=== PATIENT | male | born 1950 | race Caucasian/White ===

== ENCOUNTER → 2018-05-07 14:52 | Outpatient (CLI) | payer OTHER, SELFPAY ==
[2018-05-07 15:54] LABS: Add Manual Diff / Slide Review NO; Basophils Percent Auto 0.3 % (0-2); Eosinophils Percent Auto 7.6 % (2-4); Hematocrit 46.3 % (41-53); Hemoglobin 15.5 g/dL (13.5-17.5); Lymphocytes Percent Auto 16.7 % (25-40); Mean Corpuscular HGB Conc 33.5 % (30-36); Mean Corpuscular Hemoglobin 31.5 PG (26-34); Mean Corpuscular Volume 93.9 fL (80-100); Monocytes Percent Auto 9.6 % (3-14); Neutrophils Absolute Auto 5900 /uL (3000-5900); Neutrophils Percent Auto 65.8 % (50-75); Platelet Count 222 X10^3/uL (150-400); Red Blood Cell Count 4.93 X10^6/uL (4.5-5.9); Red Cell Distribution Width 13.4 % (11.6-14.8); White Blood Cell Count 8.9 X10^3/uL (4.5-11.0)
[2018-05-07 16:29] LABS: Alanine Aminotransferase 26 IU/L (21-72); Albumin 4.1 g/dL (3.5-5.0); Albumin Globulin Ratio 1.4 (1.0-2.8); Alkaline Phosphatase 61 U/L (38-126); Aspartate Aminotransferase 23 IU/L (17-59); Bilirubin Total 0.4 mg/dL (0.2-1.3); Blood Urea Nitrogen 24 mg/dL (9-20); Calcium 8.8 mg/dL (8.4-10.2); Carbon Dioxide 30 mmol/L (22-32); Chloride 101 mmol/L (98-107); Cholesterol 180 mg/dL (140-199); Estimated Glomerular Filt Rate > 60.0 mL/min (>60); Globulin 2.9 g/dL (1.7-4.1); Glucose 79 mg/dL (80-110); HDL Cholesterol 64 mg/dL (40-60); HEMOLYSIS < 15 (0-50); LDL Cholesterol Calculated 94 mg/dL (<100); Potassium 4.5 mmol/L (3.4-5.1); Sodium 141 mmol/L (137-145); Triglycerides 110 mg/dL (35-150)
[2018-05-07 19:14] LABS: Prostate Specific Antigen Scrn 0.518 ng/mL (0.1-4.0)
== END ==
PROVIDERS: PCP Internal Medicine; Visit Provider Physician Assistant
DX: Z12.5 Encounter for screening for malignant neoplasm of prostate (principal); E78.2 Mixed hyperlipidemia
CPT/HCPCS: 36415; 80053; 80061; 85025; G0103

== ENCOUNTER 2019-07-25 14:07 | Emergency (ER) | payer MEDICARE, SELFPAY ==
[2019-07-25 14:13] VITALS: BP 146/97; PULSE 966; RESP 14; TEMP 36.6; O2SAT 97; BMI 25.1
--- NOTE | 2019-07-25 15:31 | DI.RAD.S_ITS ---
PROCEDURE: XR RIBS LT MIN 3V W CXR1V INDICATIONS: fall/pain TECHNIQUE: 2 views of the left ribs were acquired, along with a single view chest. COMPARISON: None. FINDINGS: Surgical changes and devices: None. Bones and chest wall: There is a nondisplaced lateral left 8th rib fracture. No additional rib fractures are evident. No suspicious bony lesions. Overlying soft tissues appear unremarkable. The Lungs and pleura: No pleural effusions or pneumothorax. Mild atelectasis at the left costophrenic angle is noted. No additional areas of significant pulmonary consolidation are appreciated. Mediastinum: Mediastinal contours appear normal. Heart size is normal. IMPRESSION: Nondisplaced left lateral 8th rib fracture. No pneumothorax. Dictated by: Efren Evans M.D. on 07/25/2019 at 15:53 Approved by: Efren Evans M.D. on 07/25/2019 at 15:54
--- NOTE | 2019-07-25 15:31 | DI.RAD.S_ITS ---
PROCEDURE: XR THORACIC SPINE 2V INDICATIONS: fall/pain TECHNIQUE: 2 views of the thoracic spine were acquired. COMPARISON: None. FINDINGS: Bones: On the lateral views, the cervicothoracic junction is not completely included on this examination on the lateral view. No swimmer's view was provided. The vertebral body heights are within normal limits throughout the thoracic spine without evidence to suggest acute compression fracture. The bone mineralization is within normal limits. Moderate degenerative changes of the thoracic spine are present. Soft tissues: The imaged overlying soft tissues of the chest are within normal limits. IMPRESSION: 1. Moderate degenerative changes of the thoracic spine. 2. No displaced fractures are appreciated. However, the cervicothoracic junction was not adequately evaluated on this study on the lateral view. Dictated by: Efren Evans M.D. on 07/25/2019 at 15:45 Approved by: Efren Evans M.D. on 07/25/2019 at 15:52
--- NOTE | 2019-07-25 15:34 | ED.FALL ---
HPI - Fall General Chief Complaint: Fall Stated Complaint: GLF Monday, Unable to ambulate now Time Seen by Provider: 07/25/19 14:13 Source: patient and family Mode of arrival: EMS Limitations: no limitations History of Present Illness HPI Narrative: Patient comes emergency department complaining of pain in his left mid back after a fall 2 days ago. Patient states that he slipped and fell flat onto his back. He states that he immediately had some pain adjacent to his spine, inferior to his scapula, but states he was able to pull himself up on a tree and walk back to his car. He drove home, and walked into the house and up the stairs and laid down in his bed. Since then, he states he has been in too much pain to be able to get up. He denies any shortness of breath, and states he has mild pain when he takes deep breath, but that it hurts very much with any movement or shift in position. He states also if he coughs or sneezes, that this causes a sharp pain in the same area. Patient denies any other injuries during the fall. No head or neck injury. No hip or leg pain. No abdominal pain. Patient denies any other complaints at this time. He states his legs do not feel weak or numb, but just that when he tries to stand or walk, the pain in his back is excruciating. Related Data Previous Rx's Medication Instructions Recorded oxycodone-acetaminophen 1 tab PO Q4H PRN #30 tab 07/25/19 Allergies Allergy/AdvReac Type Severity Reaction Status Date / Time No Known Drug Allergies Allergy Verified 07/25/19 14:13 Review of Systems Constitutional Constitutional: Denies chills, Denies fatigue, Denies fever(s), Denies frequent falls, Denies lethargy and Denies weakness Eyes Eyes: Denies change in vision, Denies eye discharge, Denies irritation and Denies loss of vision ENT Ears, Nose, Mouth, and Throat: Denies change in voice, Denies dizziness, Denies neck pain, Denies sore throat and Denies throat swelling Cardiovascular Cardiovascular: Denies chest pain, Denies irregular heart rhythm, Denies lightheadedness, Denies palpitations, Denies dyspnea, Denies dyspnea on exertion and Denies orthopnea Respiratory Respiratory: Denies cough, Denies dyspnea, Denies dyspnea on exertion and Denies wheezing Gastrointestinal Gastrointestinal: Denies abdominal pain, Denies change in bowel habits, Denies diarrhea, Denies nausea and Denies vomiting Genitourinary Genitourinary: Denies hematuria, Denies flank pain, Denies urinary incontinence and Denies urinary urgency Musculoskeletal Musculoskeletal: Reports back pain, Denies muscle weakness, Denies neck pain, Denies numbness and Denies tingling Integumentary/Breasts Skin/Breast: Denies pruritus, Denies erythema, Denies rash and Denies wounds Neurologic Neurologic: Denies behavioral changes, Denies confusion, Denies dizziness, Denies frequent falls, Denies loss of vision, Denies numbness, Denies tingling and Denies weakness Psychiatric Psychiatric: Denies anxiety, Denies behavioral changes, Denies confusion, Denies depression, Denies homicidal ideation and Denies suicidal ideation Endocrine Endocrine: Denies fatigue, Denies flushing and Denies palpitations Hematologic/Lymphatic Hematologic/Lymphatic: Denies easy bruising Allergic/Immunologic Allergic/Immunologic: Denies urticaria, Denies throat swelling and Denies wheezing Patient History Medical History Left inguinal hernia (Inactive) Social History Smoking Status: Unknown if ever smoked Smoking Status: Unknown if ever smoked alcohol intake frequency: 0-2 drinks per day Substance Use Type: does not use Exam Initial Vital Signs Initial Vital Signs: Vital Signs Temperature 97.9 F 07/25/19 14:13 Pulse Rate 966 H 07/25/19 14:13 Respiratory Rate 14 07/25/19 14:13 Blood Pressure 146/97 H 07/25/19 14:13 Pulse Oximetry 97 07/25/19 14:13 Const General: cooperative and well developed Nutritional Appearance: well nourished [facility] Head: normocephalic and atraumatic Ears: external ears normal Nose: external nose normal and No nasal discharge Face and sinus: face symmetric and No dry mucous membranes Mouth: oral mucosae normal and moist mucous membranes Teeth and gingiva: dentition normal Eyes General: appearance normal, both eyes and all related structures Eyelids: eyelids normal Conjunctivae: conjunctivae normal Sclera: sclerae normal Pupils: PERRL EOM: EOM intact bilaterally Neck Neck: normal visual inspection, trachea midline, No lymphadenopathy, No midline deformity and No JVD Lymphatic: No lymphedema Chest Chest: normal inspection of the chest Resp Effort & Inspection: normal respiratory effort, able to speak in complete sentences, no respiratory distress and no use of accessory muscles Auscultation: clear to auscultation bilaterally, no rales, no rhonchi and no wheezes Cardio Rate: regular rate Rhythm: regular rhythm Heart Sounds: no click, no gallops, no murmurs and no rubs Pulses: normal peripheral pulses GI Inspection: non-distended Palpation: soft, no hepatosplenomegaly, No guarding, No pulsatile mass and No tender Auscultation: normal bowel sounds Back/Spine/Pelvis Back: No CVA tenderness Cervical Spine: cervical ROM normal and No pain with cervical ROM Thoracic/Lumbar Spine: thoracic and lumbar spine normal to inspection Skin General: no rashes or lesions noted, No jaundice and No petechiae Neuro General: alert, oriented x3, gait normal and no focal motor deficits Speech: speech normal Extrem General: full ROM, no clubbing, cyanosis or edema, no pedal edema and no calf tenderness Psych Appearance: well kempt Mental Status: mental status grossly normal Attitude: cooperative Thought Content: normal and suicidality Judgment: judgment good Course Course Course Narrative: Patient was treated symptomatically in the emergency department IM Toradol and Dilaudid. He was worked up with x-ray of the ribs and thoracic spine, which showed a nondisplaced fracture of posterior rib 8, on the left. I did discuss the findings with the patient and his . He was found to be feeling much better after symptomatic management in the emergency department. We've discussed the importance of keeping moving, but avoiding strenuous activity with the trunk or upper extremities, and we've also discussed the importance of breathing deeply. We've discussed the timeline for expected healing of the rib fracture. We've discussed home management of symptoms, as well as the usual indications for return. Orders Ordered: ED Orders 07/25/19 15:31 XR ribs LT min 3V w CXR1V Stat XR thoracic spine 2V Stat Discontinued Medications Hydromorphone HCl (Dilaudid) 1 mg IM NOW ONE Stop: 07/25/19 15:32 Last Admin: 07/25/19 15:49 Dose: 1 mg Documented by: SCANAPO Ketorolac Tromethamine (Toradol) 30 mg IM NOW ONE Stop: 07/25/19 15:32 Last Admin: 07/25/19 15:49 Dose: 30 mg Documented by: AMARI Vital Signs Vital signs: Vital Signs - 8 hr 07/25/19 14:13 07/25/19 17:07 Temperature 97.9 F Pulse Rate 966 H 61 Respiratory Rate 14 16 Blood Pressure 146/97 H Blood Pressure [Right Arm] 136/79 Pulse Oximetry 97 97 MDM - Fall Medical Records Attestation: I reviewed the patient's medical records. Imaging Data Left ribs x-ray series: Radiologist's Impression: PROCEDURE: XR RIBS LT MIN 3V W CXR1V INDICATIONS: fall/pain TECHNIQUE: 2 views of the left ribs were acquired, along with a single view chest. COMPARISON: None. FINDINGS: Surgical changes and devices: None. Bones and chest wall: There is a nondisplaced lateral left 8th rib fracture. No additional rib fractures are evident. No suspicious bony lesions. Overlying soft tissues appear unremarkable. The Lungs and pleura: No pleural effusions or pneumothorax. Mild atelectasis at the left costophrenic angle is noted. No additional areas of significant pulmonary consolidation are appreciated. Mediastinum: Mediastinal contours appear normal. Heart size is normal. IMPRESSION: Nondisplaced left lateral 8th rib fracture. No pneumothorax. Dictated by: Efren Evans M.D. on 07/25/2019 at 15:53 Approved by: Efren Evans M.D. on 07/25/2019 at 15:54 Thoracic spine x-ray series: Radiologist's Impression: PROCEDURE: XR THORACIC SPINE 2V INDICATIONS: fall/pain TECHNIQUE: 2 views of the thoracic spine were acquired. COMPARISON: None. FINDINGS: Bones: On the lateral views, the cervicothoracic junction is not completely included on this examination on the lateral view. No swimmer's view was provided. The vertebral body heights are within normal limits throughout the thoracic spine without evidence to suggest acute compression fracture. The bone mineralization is within normal limits. Moderate degenerative changes of the thoracic spine are present. Soft tissues: The imaged overlying soft tissues of the chest are within normal limits. IMPRESSION: 1. Moderate degenerative changes of the thoracic spine. 2. No displaced fractures are appreciated. However, the cervicothoracic junction was not adequately evaluated on this study on the lateral view. Dictated by: Efren Evans M.D. on 07/25/2019 at 15:45 Approved by: Efren Evans M.D. on 07/25/2019 at 15:52 Discharge Plan Departure Patient Disposition: Home Clinical Impression: Closed rib fracture Qualifiers: Encounter type: initial encounter Rib fracture type: single rib Laterality: left Qualified Code(s): S22.32XA - Fracture of one rib, left side, initial encounter for closed fracture Discharge Date/Time: 07/25/19 18:19 Instructions: DI for Rib Fracture Activity Restrictions/Additional Instructions: Your x-ray shows a fracture, or break, of your 8th rib on the left. This will heal on its own, but can be painful in the meantime. Please take the pain medication, along with ibuprofen, as needed. Prescriptions: New oxycodone-acetaminophen 5-325 mg tablet 1 tab PO Q4H PRN (Reason: pain) Qty: 30 RF: 0 Referrals: [facility] [Provider Group]
[2019-07-25] MEDS: KETOROLAC 60 MG/2 ML VIAL 30 MG IM (15:49)
[2019-07-25] MEDS: HYDROMORPHONE 1 MG INJ IM (15:49)
[2019-07-25 17:07] VITALS: BP 136/79; PULSE 61; RESP 16; O2SAT 97
== END 2019-07-25 18:19 | disposition home or self-care (01) ==
PROVIDERS: Emergency Provider Emergency Medicine; PCP Internal Medicine
DX: S22.32XA Fracture of one rib, left side, initial encounter for closed fracture (principal); W01.0XXA Fall on same level from slipping, tripping and stumbling without subsequent striking against object, initial encounter
CPT/HCPCS: 71101; 72070; 93005; 96372; 99283; 99284; J1170; J1885

== ENCOUNTER → 2020-08-27 09:12 | Outpatient (CLI) | payer OTHER, SELFPAY ==
[2020-08-27 10:14] LABS: COVID19 -Nasal RAPID Negative (Negative)
== END ==
PROVIDERS: PCP Internal Medicine; Visit Provider Surgery
DX: Z20.822 Contact with and (suspected) exposure to COVID-19 (principal); Z01.812 Encounter for preprocedural laboratory examination
CPT/HCPCS: 87635; C9803

== ENCOUNTER 2020-08-28 08:13 | Day surgery (SDC) | payer OTHER, SELFPAY ==
[2020-08-28] VITALS (10 sets, daily range): BP systolic 103–137; BP diastolic 65–84; PULSE 48–58; RESP 11–21; TEMP 36.3–36.7; O2SAT 99–100; BMI 24.4
--- NOTE | 2020-08-28 | PATH_ITS ---
[facility] Accession Number: [id number] . 01 Material submitted: . colon - POLYP AT 60 CM . 01 Clinical history: . SCREENING COLONOSCOPY . 02 Diagnosis: Colon, Polyp at 60 cm, Biopsy: Tubular adenoma. MRV 09/01/2020 0949 Local . 02 Electronically signed: . Dorothy Garza MD, Pathologist NPI- [id number] . 01 Gross description: . POLYP AT 60 CM: Received in formalin is 1 fragment(s) of ross, soft tissue measuring 0.4 x 0.3 x 0.3 cm submitted entirely in 1 cassette(s) /QBJ 08/29/2020 0842 Local . 02 Pathologist provided ICD-10: D12.6 . 02 CPT . 309184 Performed at: 01 [facility] [address] [id number] MD Jimbo Berumen MD Phone: [phone] Performed at: 02 [facility] [address] [place], [place] [id number] MD Dorothy Garza MD Phone: [phone]
--- NOTE | 2020-08-28 08:19 | PM.HP.1 ---
History of Present Illness History of Present Illness Date Patient Seen: 08/28/20 Time Patient Seen: 08:19 Chief complaint: SCREENING COLONOSCOPY Narrative: This is a 70-year-old man who had a colonoscopy 5 years ago, was recommended to have a repeat colonoscopy within 5 years. Does not recall the findings of that colonoscopy, and I do not have documentation from that procedure. Since then he has not had any new symptoms. Specifically he denies melena, hematochezia, unexplained abdominal pain, or unexplained weight loss. ROS: Thirteen system review is otherwise negative other than as mentioned below and in HPI. PE: GENERAL: Well groomed and cooperative. Appears stated age. Answers questions promptly and appropriately. Vital signs noted. HENT: Normocephalic, atraumatic. Hearing intact. EYES: Conjunctiva pink, sclera white, no periorbital swelling. CARDIOVASCULAR: Regular rate. No pedal edema. RESPIRATORY: Non-tachypneic, breathing comfortably on room air. GASTROINTESTINAL: Abdomen soft and non-distended GENITALURINARY: No flank tenderness. MUSCULOSKELETAL: Equal tone and mass bilaterally. SKIN: Warm, dry, soft, appropriate color for ethnicity. No other lesions, rashes, or wounds. NEURO: Alert and Oriented X 3. No gross sensory deficits, or cognitive issues. PSYCH: Appropriate affect and mood. Patient History Medical History Left inguinal hernia Family & Social History Tobacco & Substance use: Smoking Status Unknown if ever smoked alcohol intake frequency 0-2 drinks per day Substance Use Type does not use Meds Home Medications and Allergies Allergies Allergy/AdvReac Type Severity Reaction Status Date / Time No Known Drug Allergies Allergy Verified 08/28/20 08:24 Assessment & Plan Assessment & Plan narrative: Risks and benefits of screening colonoscopy and possible polypectomy were discussed with the patient including risk of bleeding, perforation, need for additional procedures, risks of anesthesia. The patient desires to proceed with the colonoscopy procedure. COVID-19 COVID-19 status: Negative Result date/Date tested (Pos, Neg/Pending): 08/27/20 Quality VTE Deep Vein Thrombosis/Pulmonary Embolism Present on Admission: No
[2020-08-28] MEDS: SODIUM CHLORIDE 0.9% 1,000 ML 200 ML IV (08:48)
--- NOTE | 2020-08-28 08:53 | P.OP.ENDO_ITS ---
Operative Date/Time/Diagnoses Date of procedure: 08/28/20 Time of procedure: 08:53 Pre-op diagnosis: Due for screening colonoscopy Post-op diagnosis: other (Single polyp) Procedure & Clinicians Study performed: Colonoscopy Procedural sedation performed by the endoscopy Polypectomy with Jumbo forceps Same procedure as scheduled: Yes Indications: Last colonoscopy 5 years ago, due for follow-up colonoscopy Surgeon: Sarah Bettencourt Procedure Notes SCOAP/Timeout: Performed Procedure in detail: The patient was brought to the room and placed in left lateral decubitus position with all bony prominences padded. A time-out was performed and then the patient was given procedural sedation starting with 4 mg of Versed and 100 mcg of fentanyl. Vitals were monitored throughout the procedure and remained stable. Once adequately sedated, the procedure was begun. A rectal exam was performed revealing no abnormalities. The colonoscope was then introduced to the rectum and advanced to the cecum in the usual fashion. The cecum was identified by the appendiceal orifice, the mucosal tri- fold, and the ileocecal valve. The scope was then retracted while rotating side to side and examining each mucosal fold. A small adenomatous appearing polyp was seen at 60 cm, and removed with Jumbo forceps. At the conclusion of the procedure retroflexion was performed and small grade 1-2 internal hemorrhoids without stigmata of bleeding were seen. The scope was then withdrawn from the rectum the procedure was concluded. The patient tolerated the procedure well and was transferred to the PACU in stable condition. Scope withdrawal time: 12 Sedation minutes: 20 Findings: polyp Specimen(s): other Complications: none Impression: Single polyp Post-procedure Recommendations: Colonscopy in 5 years Follow up: as needed Disposition: PACU
[2020-08-28] MEDS: MIDAZOLAM 5 MG/5 ML VIAL IV (09:21)
[2020-08-28] MEDS: fentaNYL 250 MCG/5 ML INJ IV (09:22)
--- NOTE | 2020-08-28 10:42 | SUR.PHASEII ---
PT DISCHARGED WITH INSTRUCTIONS GIVEN, PT TOLERATING PO JUICE, DENIES ANY PAIN OR DISCOMFORT.
== END 2020-08-28 10:24 | disposition home or self-care (01) ==
PROVIDERS: PCP Physician Assistant; Referring Provider Physician Assistant; Visit Provider Surgery
PROC: 0DJD8ZZ Inspection of Lower Intestinal Tract, Via Natural or Artificial Opening Endoscopic (ICD-10-PCS; CPT 45378; principal; 2020-08-28 09:15)
DX: Z12.11 Encounter for screening for malignant neoplasm of colon (principal); K64.0 First degree hemorrhoids; D12.6 Benign neoplasm of colon, unspecified
CPT/HCPCS: 45380; 99152; J2250; J3010

== ENCOUNTER → 2020-11-06 08:21 | Outpatient (CLI) | payer OTHER, SELFPAY ==
[2020-11-06 09:36] LABS: Add Manual Diff / Slide Review NO; Basophils Absolute Auto 0 /uL (0-100); Basophils Percent Auto 0.5 % (0-2); Eosinophils Absolute Auto 500 /uL (0-450); Eosinophils Percent Auto 9.1 % (2-4); Hemoglobin 14.9 g/dL (13.5-17.5); Lymphocytes Absolute Auto 1300 /uL (1100-4500); Lymphocytes Percent Auto 23.7 % (25-40); Mean Corpuscular HGB Conc 32.5 % (30-36); Mean Corpuscular Hemoglobin 31.2 PG (26-34); Monocytes Absolute Auto 500 /uL (0-900); Monocytes Percent Auto 8.9 % (3-14); Neutrophils Absolute Auto 3100 /uL (1500-7000); Neutrophils Percent Auto 57.8 % (50-75); Platelet Count 228 X10^3/uL (150-400); Red Blood Cell Count 4.79 X10^6/uL (4.5-5.9); Red Cell Distribution Width 12.7 % (11.6-14.8); White Blood Cell Count 5.4 X10^3/uL (4.5-11.0)
[2020-11-06 10:42] LABS: Alanine Aminotransferase 14 IU/L (<50); Albumin 3.9 g/dL (3.5-5.0); Albumin Globulin Ratio 1.3 (1.0-2.8); Alkaline Phosphatase 68 U/L (38-126); Aspartate Aminotransferase 24 IU/L (17-59); BUN Creatinine Ratio 27.3 (6-22); Bilirubin Total 0.6 mg/dL (0.2-1.3); Blood Urea Nitrogen 21 mg/dL (9-20); Calcium 9.1 mg/dL (8.4-10.2); Carbon Dioxide 28 mmol/L (22-32); Chloride 103 mmol/L (98-107); Cholesterol 175 mg/dL (140-199); Estimated Glomerular Filt Rate > 60.0 mL/min (>60); Globulin 2.9 g/dL (1.7-4.1); Glucose 93 mg/dL (80-110); HDL Cholesterol 65 mg/dL (40-60); HEMOLYSIS < 15 (0-50); LDL Cholesterol Calculated 98 mg/dL (<100); Potassium 5.2 mmol/L (3.4-5.1); Sodium 137 mmol/L (137-145); Total Protein 6.8 g/dL (6.3-8.2); Triglycerides 62 mg/dL (35-150)
== END ==
PROVIDERS: PCP Physician Assistant; Referring Provider Physician Assistant; Visit Provider Physician Assistant
DX: E78.2 Mixed hyperlipidemia (principal)
CPT/HCPCS: 36415; 80053; 80061; 85025

== ENCOUNTER → 2022-11-18 07:22 | Outpatient (CLI) | payer MEDICARE, SELFPAY ==
[2022-11-18 08:10] LABS: Alanine Aminotransferase 18 IU/L (<50); Albumin 3.9 g/dL (3.5-5.0); Albumin Globulin Ratio 1.3 (1.0-2.8); Alkaline Phosphatase 63 U/L (38-126); Aspartate Aminotransferase 25 IU/L (17-59); BUN Creatinine Ratio 27.8 (6-22); Bilirubin Total 0.9 mg/dL (0.2-1.3); Blood Urea Nitrogen 20 mg/dL (9-20); Calcium 8.8 mg/dL (8.4-10.2); Carbon Dioxide 29 mmol/L (22-32); Chloride 104 mmol/L (98-107); Cholesterol 184 mg/dL (140-199); Estimated Glomerular Filt Rate > 60 mL/min (>60); Globulin 2.9 g/dL (1.7-4.1); Glucose 96 mg/dL (80-110); HDL Cholesterol 77 mg/dL (40-60); HEMOLYSIS 21 (0-50); LDL Cholesterol Calculated 93 mg/dL (<100); Potassium 4.6 mmol/L (3.4-5.1); Sodium 137 mmol/L (137-145); Total Protein 6.8 g/dL (6.3-8.2); Triglycerides 72 mg/dL (35-150)
== END ==
PROVIDERS: PCP Family Medicine; Referring Provider Family Medicine; Visit Provider Family Medicine
DX: Z00.00 Encounter for general adult medical examination without abnormal findings (principal)
CPT/HCPCS: 36415; 80053; 80061

== ENCOUNTER → 2023-11-20 11:47 | Outpatient (CLI) | payer MEDICARE, SELFPAY ==
[2023-11-20 12:53] LABS: Hematocrit 43.6 % (41-53); Hemoglobin 14.6 g/dL (13.5-17.5); Mean Corpuscular HGB Conc 33.5 % (30-36); Mean Corpuscular Hemoglobin 32.3 PG (26-34); Mean Corpuscular Volume 96.3 fL (80-100); Platelet Count 222 X10^3/uL (150-400); Red Blood Cell Count 4.53 X10^6/uL (4.5-5.9); White Blood Cell Count 7.7 X10^3/uL (4.5-11.0)
[2023-11-20 13:15] LABS: Alanine Aminotransferase 22 IU/L (<50); Albumin Globulin Ratio 1.4 (1.0-2.8); Alkaline Phosphatase 70 U/L (38-126); Aspartate Aminotransferase 30 IU/L (17-59); BUN Creatinine Ratio 26.9 (6-22); Bilirubin Total 0.8 mg/dL (0.2-1.3); Blood Urea Nitrogen 18 mg/dL (9-20); Calcium 8.8 mg/dL (8.4-10.2); Carbon Dioxide 27 mmol/L (22-32); Chloride 107 mmol/L (98-107); Cholesterol 185 mg/dL (140-199); Estimated Glomerular Filt Rate > 60 mL/min (>60); Globulin 2.8 g/dL (1.7-4.1); Glucose 75 mg/dL (80-110); HDL Cholesterol 85 mg/dL (40-60); HEMOLYSIS < 15 (0-50); LDL Cholesterol Calculated 85 mg/dL (<100); Potassium 4.4 mmol/L (3.4-5.1); Sodium 138 mmol/L (137-145); Total Protein 6.8 g/dL (6.3-8.2); Triglycerides 73 mg/dL (35-150)
== END ==
PROVIDERS: PCP Family Medicine; Referring Provider Family Medicine; Visit Provider Family Medicine
DX: Z00.00 Encounter for general adult medical examination without abnormal findings (principal); Z13.220 Encounter for screening for lipoid disorders; J45.909 Unspecified asthma, uncomplicated
CPT/HCPCS: 36415; 80053; 80061; 85027

== ENCOUNTER → 2024-12-17 10:54 | Outpatient (CLI) | payer MEDICARE, SELFPAY ==
[2024-12-17 12:36] LABS: Alanine Aminotransferase 25 IU/L (<50); Albumin 4.1 g/dL (3.5-5.0); Albumin Globulin Ratio 1.6 (1.0-2.8); Alkaline Phosphatase 66 U/L (38-126); Aspartate Aminotransferase 33 IU/L (17-59); BUN Creatinine Ratio 26.6 (6-22); Bilirubin Total 0.9 mg/dL (0.2-1.3); Blood Urea Nitrogen 21 mg/dL (9-20); Carbon Dioxide 25 mmol/L (22-32); Chloride 104 mmol/L (98-107); Cholesterol 169 mg/dL (140-199); Estimated Glomerular Filt Rate > 60 mL/min (>60); Globulin 2.5 g/dL (1.7-4.1); Glucose 69 mg/dL (70-99); HDL Cholesterol 58 mg/dL (40-60); HEMOLYSIS 36 (0-50); LDL Cholesterol Calculated 96 mg/dL (<100); Sodium 138 mmol/L (137-145); Total Protein 6.6 g/dL (6.3-8.2); Triglycerides 75 mg/dL (35-150)
== END ==
PROVIDERS: PCP Family Medicine; Referring Provider Family Medicine; Visit Provider Family Medicine
DX: Z00.00 Encounter for general adult medical examination without abnormal findings (principal)
CPT/HCPCS: 36415; 80053; 80061